=== PATIENT | female | born 1990 | race Caucasian/White ===

== ENCOUNTER 2024-03-16 22:04 | Emergency (ER) | payer MEDICAID ==
[~2024-03-16] VITALS: Ht 162.6 cm; Wt 65.0 kg
[2024-03-16 22:14] VITALS: TEMP 98.5; O2SAT 98
[2024-03-16] MEDS ORDERED: AMOX1TAB16 MT (23:58)
[2024-03-16] MEDS ORDERED: TRAM50TA3 MT (23:58)
[2024-03-16] MEDS ORDERED: IBUP-2030 MT (23:58)
[2024-03-17 00:06] VITALS: O2SAT 99
[2024-03-17] MEDS: AMOXICILLIN/POTASSIUM CLAVULANATE 875/125MG TAB PO ONE (00:16)
[2024-03-17] MEDS: HYDROCODONE/ACETAMINOPHEN 10/325MG TABLET PO ONE (00:16)
[2024-03-17 00:17] VITALS: BP 134/93; PULSE 100; RESP 17
[2024-03-17] MEDS: KETOROLAC 30MG/ML VIAL IM ONE (00:17)
== END 2024-03-16 23:23 | disposition left against medical advice (07) ==
LOC: ER 22:04
DX: K04.7 Periapical abscess without sinus (principal); Z53.21 Procedure and treatment not carried out due to patient leaving prior to being seen by health care provider
CPT/HCPCS: 96372; J1885